=== PATIENT | female | born 1985 | race African-American/Black ===

== ENCOUNTER 2017-03-05 08:55 | Emergency (ER) | payer MEDICAID, OTHER ==
[~2017-03-05] VITALS: Ht 165.1 cm; Wt 58.0 kg
[2017-03-05 08:57] VITALS: BP 123/50
== END 2017-03-05 10:46 | disposition left against medical advice (07) ==
LOC: ER 09:29
DX: R68.84 Jaw pain (principal); Z53.21 Procedure and treatment not carried out due to patient leaving prior to being seen by health care provider

== ENCOUNTER 2017-07-06 23:28 | Emergency (ER) | payer OTHER ==
[~2017-07-06] VITALS: Ht 165.1 cm; Wt 54.0 kg
[2017-07-06 23:39] VITALS: BP 114/73
== END 2017-07-07 02:00 | disposition left against medical advice (07) ==
LOC: ER 23:28
DX: M79.641 Pain in right hand (principal); M79.89 Other specified soft tissue disorders; Z53.21 Procedure and treatment not carried out due to patient leaving prior to being seen by health care provider
CPT/HCPCS: 99281

== ENCOUNTER 2017-07-07 11:30 | Emergency (ER) | payer OTHER ==
[~2017-07-07] VITALS: Ht 165.1 cm; Wt 55.0 kg
[2017-07-07] MEDS ORDERED: IBUPROFEN 400MG TABLET PO ONE (12:00)
[2017-07-07] MEDS ORDERED: ACETAMINOPHEN WITH CODEINE 300/30MG TABLET PO ONE (14:45)
[2017-07-07 15:03] VITALS: BP 98/72
== END 2017-07-07 15:49 | disposition home or self-care (01) ==
LOC: ER 11:30
DX: S62.396A Other fracture of fifth metacarpal bone, right hand, initial encounter for closed fracture (principal); E03.9 Hypothyroidism, unspecified; I10 Essential (primary) hypertension; W22.03XA Walked into furniture, initial encounter; Y93.89 Activity, other specified; Y92.89 Other specified places as the place of occurrence of the external cause; Y99.8 Other external cause status
CPT/HCPCS: 29125; 73110; 73130; 99284

== ENCOUNTER 2017-10-03 11:52 | Emergency (ER) | payer OTHER ==
[~2017-10-03] VITALS: Ht 165.1 cm; Wt 54.0 kg
[2017-10-03] MEDS ORDERED: vitamins (12:11)
[2017-10-03 13:06] LABS: BASOPHILS % 0.8 % (0.0-2.0); EOSINOPHILS % 2.4 % (0.0-5.0); HEMATOCRIT. 34.7 % (36.0-48.0); HEMOGLOBIN. 11.3 g/dL (12.0-16.0); LYMPHOCYTES % 38.2 % (20.0-50.0); MEAN CORPUSCULAR HEMOGLOBIN 27.7 pg (28.0-32.0); MEAN CORPUSCULAR VOLUME 85.1 fL (81.0-99.0); MEAN PLATELET VOLUME 9.6 fl (7.4-10.4); MONOCYTES % 5.7 % (2.0-8.0); NEUTROPHILS % 52.9 % (40.0-76.0); PLATELET 225 x1000/uL (130-400); RED BLOOD CELL COUNT 4.07 mill/uL (4.2-5.4); RED CELL DISTRIBUTION WIDTH 19.8 % (11.6-14.6)
[2017-10-03 13:22] LABS: CHLORIDE 106 mEq/L (98-107)
[2017-10-03 16:59] VITALS: BP 106/64
== END 2017-10-03 17:07 | disposition home or self-care (01) ==
LOC: ER 11:52
DX: L50.9 Urticaria, unspecified (principal); E03.9 Hypothyroidism, unspecified; Z98.890 Other specified postprocedural states
CPT/HCPCS: 36415; 80048; 85025; 99284

== ENCOUNTER 2019-06-06 09:06 | Emergency (ER) | payer MEDICAID, OTHER ==
[~2019-06-06] VITALS: Ht 167.6 cm; Wt 75.0 kg
[~2019-06-06 09:06] MED LIST: vitamins
[2019-06-06 11:44] VITALS: BP 116/77
== END 2019-06-06 12:29 | disposition home or self-care (01) ==
LOC: ER 09:06
DX: B34.9 Viral infection, unspecified (principal)
CPT/HCPCS: 99281; 99282; 99283

== ENCOUNTER 2022-01-16 08:25 | Emergency (ER) | payer MEDICAID, OTHER ==
[~2022-01-16] VITALS: Ht 165.1 cm; Wt 73.0 kg
[2022-01-16] MEDS ORDERED: KETOROLAC 15MG/ML VIAL IM ONE (09:15)
[2022-01-16 11:39] VITALS: BP 140/77
== END 2022-01-16 11:41 | disposition home or self-care (01) ==
LOC: ER 08:25
DX: M25.512 Pain in left shoulder (principal)
CPT/HCPCS: 73030; 81025; 96372; 99283; J1885

== ENCOUNTER 2022-01-28 10:10 | Inpatient (IN) | payer MEDICAID, OTHER ==
[~2022-01-28] VITALS: Ht 170.2 cm; Wt 69.9 kg
[2022-01-28] MEDS ORDERED: METHYLPREDNISOLONE SOD SUCC 125 MG/2 ML VIAL IV STA (10:41)
[2022-01-28] MEDS ORDERED: IPRATROPIUM/ALBUTEROL 0.5-3(2.5)MG/3ML NEB HHN ONE (10:45)
[2022-01-28] MEDS ORDERED: ACETAMINOPHEN 325MG TABLET PO NR (11:00)
[2022-01-28 11:31] LABS: BASOPHILS % 0.1 % (0.0-2.0); EOSINOPHILS % 1.4 % (0.0-5.0); HEMATOCRIT. 38.4 % (36.0-48.0); HEMOGLOBIN. 12.5 g/dL (12.0-16.0); LYMPHOCYTES % 9.4 % (20.0-50.0); MEAN CORPUSCULAR HEMOGLOBIN 28.6 pg (28.0-32.0); MEAN CORPUSCULAR VOLUME 87.6 fL (81.0-99.0); MEAN PLATELET VOLUME 9.4 fl (7.4-10.4); MONOCYTES % 3.4 % (2.0-8.0); NEUTROPHILS % 85.7 % (40.0-76.0); PLATELET 285 x1000/uL (130-400); RED BLOOD CELL COUNT 4.38 mill/uL (4.2-5.4); RED CELL DISTRIBUTION WIDTH 18.4 % (11.6-14.6)
[2022-01-28 11:39] LABS: CHLORIDE 103 mEq/L (98-107)
[2022-01-28 11:47] LABS: BG BASE EXCESS -2.4 mmol/L (-2.0-2.0); BG CARBOXYHEMOGLOBIN 0.9 % (0.5-1.5); BG DEOXYHEMOGLOBIN 6.3 % (0.0-5.0); BG FRACTION INSPIRED OXYGEN 21; BG HCO3 ACT 21.3 mmol/L (22.0-26.0); BG METHEMOGLOBIN 0.2 % (0.0-1.5); BG OXYGEN SATURATION 93.6 % (92.0-98.5); BG OXYHEMOGLOBIN 92.6 % (94.0-97.0); BG PCO2 33.5 mmHg (35.0-45.0); BG PH 7.421 (7.350-7.450); BG PO2 66.8 mmHg (75.0-100.0); BG SAMPLE SITE RIGHT BRACHIAL; BG TOTAL HEMOGLOBIN 13.1 g/dL (12.0-18.0); BG VENT MODE ROOM AIR
[2022-01-28 12:07] LABS: ETHANOL BLOOD < 10 mg/dL
[2022-01-28 12:12] LABS: *AMPHETAMINES SCREEN URINE NEGATIVE (NEGATIVE); *BARBITURATES SCREEN URINE NEGATIVE (NEGATIVE); *BENZODIAZEPINES SCREEN URINE NEGATIVE (NEGATIVE); *COCAINE SCREEN URINE NEGATIVE (NEGATIVE); METHADONE URINE SCREEN NEGATIVE (NEGATIVE); OPIATES URINE SCREEN NEGATIVE (NEGATIVE); PHENCYCLIDINE URINE SCREEN NEGATIVE (NEGATIVE)
[2022-01-28 12:23] LABS: CANNABINOID URINE SCREEN PRESUMTIVE POSITIVE (NEGATIVE)
[2022-01-28] MEDS ORDERED: AMOXICILLIN/POTASSIUM CLAVULANATE 875/125MG TAB PO ONE (13:30)
[2022-01-28] MEDS ORDERED: ALBUTEROL (0.5%) 2.5MG/0.5ML NEB HHN ONE (13:30)
[2022-01-28] MEDS ORDERED: CEFTRIAXONE 1 G PREMIX 50 ML IV ONE (13:30)
[2022-01-28] MEDS ORDERED: CLONIDINE 0.1MG TABLET PO PRN (20:00)
[2022-01-28] MEDS ORDERED: CEFTRIAXONE 1 G PREMIX 50 ML IV SCH (20:00)
[2022-01-28] MEDS ORDERED: IPRATROPIUM/ALBUTEROL 0.5-3(2.5)MG/3ML NEB HHN SCH (20:00)
[2022-01-28] MEDS ORDERED: AZITHROMYCIN 500MG/250ML 250 ML IV NR (20:00)
[2022-01-28] MEDS ORDERED: AZITHROMYCIN 500 MG in DEXT 5% WATER 250 ML IV SCH (21:30)
[2022-01-28] MEDS ORDERED: CEFTRIAXONE 1,000 MG in DEXTROSE 5% WATER 50 ML IV SCH (21:30)
[2022-01-28] MEDS: METHYLPREDNISOLONE SOD SUCC 40 MG/ML VIAL IV SCH (22:04)
[2022-01-28] MEDS: ENOXAPARIN 40MG/0.4ML SYR SUBCUT SCH (22:05)
[2022-01-28] MEDS: ACETAMINOPHEN 325MG TABLET PO PRN (22:06)
[2022-01-28] MEDS: BENZONATATE 100MG CAPSULE PO PRN (22:07)
[2022-01-28 23:20] LABS: CREATINE KINASE 255 IU/L (26-192); CREATINE KINASE MB FRACTION 1.5 ng/mL (0.5-3.6)
[2022-01-29 00:10] VITALS: BP 109/56
[2022-01-29] MEDS: ONDANSETRON HCL 4MG/2ML INJ IV PRN ×2 (01:31→19:25)
[2022-01-29] MEDS: IPRATROPIUM/ALBUTEROL 0.5-3(2.5)MG/3ML NEB HHN SCH ×5 (01:46→23:43)
[2022-01-29] MEDS ORDERED: DICL100G31 TP (01:56)
[2022-01-29] MEDS ORDERED: NAPR-681 PO (01:56)
[2022-01-29 04:00] VITALS: BP 101/51
[2022-01-29] MEDS: METHYLPREDNISOLONE SOD SUCC 40 MG/ML VIAL IV SCH ×3 (06:44→21:36)
[2022-01-29] MEDS: BENZONATATE 100MG CAPSULE PO PRN ×2 (06:46→19:24)
[2022-01-29] MEDS: ACETAMINOPHEN 325MG TABLET PO PRN ×2 (06:46→19:25)
[2022-01-29 07:41] LABS: BASOPHILS % 0.1 % (0.0-2.0); HEMATOCRIT. 36.6 % (36.0-48.0); HEMOGLOBIN. 12.2 g/dL (12.0-16.0); LYMPHOCYTES % 9.3 % (20.0-50.0); MEAN CORPUSCULAR HEMOGLOBIN 28.8 pg (28.0-32.0); MEAN CORPUSCULAR VOLUME 86.3 fL (81.0-99.0); MONOCYTES % 2.7 % (2.0-8.0); NEUTROPHILS % 87.9 % (40.0-76.0); PLATELET 297 x1000/uL (130-400); RED BLOOD CELL COUNT 4.24 mill/uL (4.2-5.4); RED CELL DISTRIBUTION WIDTH 19.2 % (11.6-14.6)
[2022-01-29 08:00] VITALS: BP 103/55
[2022-01-29 08:11] LABS: CHLORIDE 103 mEq/L (98-107)
[2022-01-29 08:30] LABS: CREATINE KINASE 213 IU/L (26-192); CREATINE KINASE MB FRACTION < 1.0 ng/mL (0.5-3.6)
[2022-01-29 12:00] VITALS: BP 115/70
[2022-01-29 13:02] VITALS: BP 115/70
[2022-01-29 16:00] VITALS: BP 129/76
[2022-01-29] MEDS ORDERED: IOHEXOL-350 100 ML BOTTLE ONE ×2 (17:13→21:29)
[2022-01-29] MEDS: AZITHROMYCIN 500 MG in DEXT 5% WATER 250 ML IV SCH (18:23)
[2022-01-29] MEDS: CEFTRIAXONE 1,000 MG in DEXTROSE 5% WATER 50 ML IV SCH (19:25)
[2022-01-29] MEDS ORDERED: AZITHROMYCIN 500 MG in DEXT 5% WATER 250 ML IV SCH (21:00)
[2022-01-29] MEDS: ENOXAPARIN 40MG/0.4ML SYR SUBCUT SCH (21:37)
[2022-01-30] MEDS: IPRATROPIUM/ALBUTEROL 0.5-3(2.5)MG/3ML NEB HHN SCH ×5 (03:38→20:08)
[2022-01-30] MEDS: METHYLPREDNISOLONE SOD SUCC 40 MG/ML VIAL IV SCH ×3 (06:29→23:49)
[2022-01-30] MEDS: ACETAMINOPHEN 325MG TABLET PO PRN (06:29)
[2022-01-30] MEDS: BENZONATATE 100MG CAPSULE PO PRN ×3 (06:29→20:54)
[2022-01-30] MEDS: ONDANSETRON HCL 4MG/2ML INJ IV PRN ×2 (06:34→17:12)
[2022-01-30 06:39] LABS: HEMATOCRIT. 36.6 % (36.0-48.0); HEMOGLOBIN. 12.1 g/dL (12.0-16.0); LYMPHOCYTES % 7.6 % (20.0-50.0); MEAN CORPUSCULAR HEMOGLOBIN 28.6 pg (28.0-32.0); MEAN CORPUSCULAR VOLUME 86.8 fL (81.0-99.0); MEAN PLATELET VOLUME 10.2 fl (7.4-10.4); MONOCYTES % 3.4 % (2.0-8.0); PLATELET 285 x1000/uL (130-400); RED BLOOD CELL COUNT 4.21 mill/uL (4.2-5.4); RED CELL DISTRIBUTION WIDTH 19.3 % (11.6-14.6)
[2022-01-30 08:00] VITALS: BP 117/70
[2022-01-30 08:34] LABS: CHLORIDE 103 mEq/L (98-107)
[2022-01-30 12:00] VITALS: BP 109/59
[2022-01-30 16:00] VITALS: BP 118/78
[2022-01-30] MEDS: AZITHROMYCIN 500 MG in DEXT 5% WATER 250 ML IV SCH (17:09)
[2022-01-30 20:00] VITALS: BP 107/75
[2022-01-30] MEDS: CEFTRIAXONE 1,000 MG in DEXTROSE 5% WATER 50 ML IV SCH (20:53)
[2022-01-30] MEDS: ENOXAPARIN 40MG/0.4ML SYR SUBCUT SCH (20:54)
[2022-01-31] VITALS: BP 104/60
[2022-01-31] MEDS: IPRATROPIUM/ALBUTEROL 0.5-3(2.5)MG/3ML NEB HHN SCH ×4 (00:11→11:42)
[2022-01-31 04:00] VITALS: BP 110/60
[2022-01-31] MEDS: METHYLPREDNISOLONE SOD SUCC 40 MG/ML VIAL IV SCH ×2 (05:07→13:07)
[2022-01-31 08:00] VITALS: BP 106/57
[2022-01-31 11:52] VITALS: BP 100/59
[2022-01-31] MEDS: BENZONATATE 100MG CAPSULE PO PRN (13:07)
[2022-01-31] MEDS ORDERED: MED4 MT (13:37)
[2022-01-31] MEDS ORDERED: PROSOL IH (13:37)
[2022-01-31] MEDS ORDERED: AZIT250T12 MT (13:37)
[2022-01-31 13:54] VITALS: BP 93/47
== END 2022-01-31 15:15 | disposition home or self-care (01) | DRG 139 ==
LOC: ER 10:13 → 7WST 18:41 → EDBEDREQTM 18:48 → EDBEDREQ 18:48 → EDBEDREQTM 18:49 → 7WST 20:09
PROVIDERS: ADMIT Internal Medicine; ATTEND Internal Medicine
DX: J18.9 Pneumonia, unspecified organism (principal); E87.1 Hypo-osmolality and hyponatremia; R65.10 Systemic inflammatory response syndrome (SIRS) of non-infectious origin without acute organ dysfunction; J45.901 Unspecified asthma with (acute) exacerbation; J20.9 Acute bronchitis, unspecified; R09.02 Hypoxemia; Z20.822 Contact with and (suspected) exposure to COVID-19; D72.829 Elevated white blood cell count, unspecified
CPT/HCPCS: 36415; 36600; 71045; 71250; 71275; 80048; 80053; 80305; 80320; 82375; 82550; 82553; 82805; 84484; 85025; 87426; 93005; 93306; 94640; 99285; C1893; C9803; J0456; J0696; J1650; J2405; J2920; J2930; J7060; Q9967; G0480